=== PATIENT | female | born 1935 | race Two or more races ===

== ENCOUNTER → 2016-08-22 | Day surgery (SDC) | payer MEDICARE, BC ==
--- NOTE | 2016-08-18 15:14 | Pre-Procedure Note/Attestation ---
Pre-Procedure Note/Attestation Complete Prior to Procedure Planned Procedure: right Procedure Narrative: 1. anterior vitrectomy , right eye . 2. posterior synechiotomy , right eye. 3.IOL exchange , right eye. Indications for Procedure Pre-Operative Diagnosis: 1.IOL dislocation , right eye. 2. vitreous Prolapse , right eye. 3.posterior synechia , right eye. Attestation I attest that I discussed the nature of the procedure; its benefits; risks and complications; and alternatives (and the risks and benefits of such alternatives ), prior to the procedure, with the patient (or the patient's legal veterans employment representative). I attest that, if there was a reasonable possibility of needing a blood transfusion, the patient (or the patient's legal veterans employment representative) was given the [place] [employer] standardized written summary, pursuant to the [place] Blood Safety Act ([place] Health and Safety Code # 1645, as amended). I attest that I re-evaluated the patient just prior to the surgery and that there has been no change in the patient's H&P, except as documented below: MAXIMUS GONZALEZ Aug 18, 2016 15:14
[2016-08-22] VITALS (9 sets, daily range): BP systolic 124–145; BP diastolic 52–64
[~2016-08-22] VITALS: Ht 165.1 cm; Wt 81.7 kg
[~2016-08-22] MED LIST: Akten 3.5% 1ml Btl ONE; BSS 15ml BTL ONE; BSS 500ml btl ONE; Bupivacaine 0.75% 30ml vial INJ ONE; Carbachol 0.01% Op Soln 1.5ml vial ONE; Dexamethasone 4mg/ml vial ONE; Diclofenac Sod 0.1% Op Soln ONE; DiphenhydrAMINE 50mg/ml Inj IVP PRN; DiphenhydrAMINE 50mg/ml Inj ONE; EPINEPHrine 1mg/1ml Amp ONE; GLIMEPIRIDE4 MG ORAL; Gatifloxacin Opth Solution 0.5% ONE; JANUMET 50-1,01 EACH ORAL; LOSARTAN-HCTZ1 EAC1 ORAL; LR 1000ml 1,000 ML IVLG SCH; LR 1000ml ONE; Labetalol 5mg/ml 20ml vial IV PRN; Lidocaine 1% MPF 10mg/ml 5ml ONE; Lidocaine 2% 20mg/ml/Epi 0.005mg/ml 20ml vial ONE; NS Irrig 1000ml ONE; PLAVIX75 MG ORAL; POTASSIUM CHLO10 MEQ ORAL; Phenylephrine 10% Opth Soln 5ml ONE; Povidone-Iodine 5% opth solution ONE; Propofol 10mg/ml 20ml IV ONE; REPAGLINIDE2 MG PO; Sodium Hyaluronate 10 mg/ml 0.85ml ONE; Sterile Water Irrig 1000ml IRRIG ONE; Tropicamide 1% Opth Soln ONE; acetaZOLAMIDE 125mg tab ORAL ONE; jardiance PO
[2016-08-22] MEDS: Diclofenac Sod 0.1% Op Soln RIGHT EYE SCH ×3 (07:33→07:52)
[2016-08-22] MEDS: Tropicamide 1% Opth Soln RIGHT EYE SCH ×3 (07:33→07:52)
[2016-08-22] MEDS: Gatifloxacin Opth Solution 0.5% RIGHT EYE SCH ×3 (07:33→07:52)
[2016-08-22] MEDS: Phenylephrine 10% Opth Soln 5ml RIGHT EYE SCH ×3 (07:34→07:52)
[2016-08-22] MEDS: Akten 3.5% 1ml Btl RIGHT EYE SCH ×3 (07:35→07:52)
--- NOTE | 2016-08-22 09:08 | Anethesia Preoperative Eval ---
Anesthesia Pre-op PMH/ROS General Date of Evaluation: Aug 22, 2016 Anesthesiologist: Kev ASA Score: ASA 2 Mallampati Score Class I : Soft palate, uvula, fauces, pillars visible Class II: Soft palate, uvula, fauces visible Class III: Soft palate, base of uvula visible Class IV: Only hard plate visible Mallampati Classification: Class III Surgeon: Candice Diagnosis: Subluxation right IOL Surgical Procedure: Repositioning right IOL Anesthesia History: none Family History: no anesthesia problems Allergies: Coded Allergies: PENICILLINS (Verified Allergy, Unknown, 08/17/16) Medications: see eMAR Past Medical History Cardiovascular: Reports: HTN, Denies: CAD, [place], arrhythmia, other, valve dz Pulmonary: Denies: COPD, LAUREN, asthma, other Gastrointestinal/Genitourinary: Reports: GERD, Denies: CRI, ESRD, other Neurologic/Psychiatric: Denies: CVA, TIA, dementia, depression/anxiety, other Endocrine: Reports: DM, Denies: hypothyroidism, other, steroids HEENT: Denies: [place] (L), [place] (R), cataract (L), cataract (R), glaucoma, other Hematology/Immune: Denies: DVT, anemia, bleeding disorder, other Musculoskeletal/Integumentary: Reports: OA, Denies: DDD, DJD, RA, edema, other Other: obesity PSxH Narrative: Right cataract Anesthesia Pre-op Phys. Exam Physician Exam Last Vital Signs Date Time Temp Pulse Resp B/P Pulse Ox O2 Delivery O2 Flow Rate FiO2 08/22/16 07:50 97.6 56 18 143/64 95 Room Air Constitutional: NAD Cardiovascular: RRR Respiratory: CTA Airway Exam Mallampati Score: Class III Anesthesia Pre-op A/P Labs see chart Studies Pre-op Studies: EKG - sr Risk Assessment & Plan Assessment: ASA II Plan: MAC Status Change Before Surgery: No Pre-Antibiotics Drug: N/A SAUL ROMERO M.D. Aug 22, 2016 09:08
--- NOTE | 2016-08-22 09:10 | 48 Hour Post Anesthesia Eval ---
Post Anesthesia Evaluation Procedure: Repositioning right IOL Date of Evaluation: Aug 22, 2016 Blood Pressure Systolic: 125 0: 53 Pulse Rate: 58 Respiratory Rate: 13 O2 Sat by Pulse Oximetry: 95 Airway: patent Nausea: No Vomiting: No Pain Intensity: 0 Hydration Status: adequate Cardiopulmonary Status: at baseline Mental Status/LOC: patient returned to baseline Post-Anesthesia Complications: 0 Follow-up care needed: ready to discharge SAUL ROMERO M.D. Aug 22, 2016 09:10
--- NOTE | 2016-08-22 09:10 | Immediate Post-Op Evaluation ---
Immediate Post-Op Evalulation Immediate Post-Op Evalulation Procedure: Repositioning right IOL Date of Evaluation: Aug 22, 2016 Time of Evaluation: 10:19 IV Fluids: 200 Blood Products: 0 Estimated Blood Loss: 0 Urinary Output: 0 Blood Pressure Systolic: 131 Blood Pressure Diastolic: 59 Pulse Rate: 58 Respiratory Rate: 15 O2 Sat by Pulse Oximetry: 93 Temperature (Fahrenheit): 97 Pain Score (1-10): 0 Nausea: No Vomiting: No Complications 0 Patient Status: awake, reacts, patent, none Hydration Status: adequate Drug: N/A SAUL ROMERO M.D. Aug 22, 2016 09:10
--- NOTE | 2016-08-22 10:19 | Brief Operative Note ---
Immediate Post Operative Note Operative Note Chief Complaint: Blurry right eye, pain, redness and foreign body sensation, right eye Pre-op Diagnosis: 1.IOL dislocation , right eye. 2. vitreous Prolapse , right eye. 3.posterior synechia , right eye. Procedure: 1- Posterior synechiotomy, right eye 2- Anterior vitrectomy, right eye 3- IOL repositioning, right eye Post-op Diagnosis: same as pre-op Surgeon: Maximus Harevy MD. Dishwashing Machine Repairer: None Additional Surgeons: None Anesthesiologist: Dr. Valle Anesthesia: MAC Specimen: none Complications: none Condition: stable Estimated Blood Loss: none Drains: none Implant(s) used?: MAXIMUS Cintron Aug 22, 2016 10:19
--- NOTE | 2016-08-22 22:18 | Operative Note - Dictated ---
"NOTE: NO DICTATION" Dat Harvey M.D. DR: TONY JOB#: [id number] CC:
--- NOTE | 2016-08-23 01:47 | Discharge Summary ---
DATE OF ADMISSION: 08/22/2016 DATE OF DISCHARGE: 08/22/2016 REASON FOR HOSPITALIZATION: 1. Posterior synechiae. 2. Anterior synechiae. 3. V2 prolapse. 4. IOL dislocation. SURGERY PERFORMED: 1. Posterior synechiotomy. 2. Anterior vitrectomy. 3. Intraocular lens reposition. CONDITION IN THE HOSPITAL: The patient tolerated the surgery without complications. DISCHARGE CONDITION: The patient was stable at discharge. DISCHARGE MEDICATIONS: 1. Prednisolone 1% one drop q.i.d., in the right eye. 2. Vigamox eyedrops one drop q.i.d., in the right eye. 3. Acular one drop t.i.d., in the right eye. POSTOPERATIVE ORDERS: The patient has to rest at home. No bending. No lifting. POSTOPERATIVE FOLLOWUP: The patient will be followed in my office tomorrow morning at 7 o'clock. Dat Harvey M.D. DR: TONY JOB#: [id number] CC:
--- NOTE | 2016-08-24 01:58 | Operative Note - Dictated ---
DATE OF OPERATION: 08/22/2016 NOTE: POOR AUDIO FACILITY: [facility]. SURGEON: Dat Harvey M.D. BIOMEDICAL ENGINEERING PROFESSOR: None. ANESTHESIOLOGIST: Dr. Valle. ANESTHESIA: Monitored anesthesia care (MAC) plus retrobulbar injection of 2% lidocaine with epinephrine plus 0.75% Marcaine. PREOPERATIVE DIAGNOSES: 1. Posterior synechiae. 2. Vitreous prolapse. 3. Intraocular lens dislocation. POSTOPERATIVE DIAGNOSES: 1. Posterior synechiae. 2. Vitreous prolapse. 3. Intraocular lens dislocation. SURGERY PERFORMED: 1. Posterior synechiotomy in the right eye. 2. Anterior vitrectomy, right eye. 3. Intraocular lens reposition, right eye. Indication For Surgery: The patient is a 80-year-old lady with history of diabetes mellitus, coronary artery disease, hypertension, hypercholesterolemia, gastritis, and diabetic neuropathy. The patient is taking medications since 02:49 and she has taken including Valle, glimepiride, Janumet, losartan, , Plavix, and vitamin B. The patient is not a smoker and is not a drinker, but she is sensitive to penicillin. The patient has had some surgeries including 04:22 cataract in both eyes. Now, she is complaining of blurry vision in the right eye, , redness, and . On examination of the right eye, the cornea is clear. Anterior chamber is deep. There is a lot of 04:50 deposits from the endothelium of the cornea and there is some to the anterior chamber. Iris is somehow atrophic and there is retroillumination through the iris. The pupillary reflex is normal. There is no RAPD. There is 05:43 support that the lens dislocated and the rim of the lens is in the middle of the . There is some posterior synechiae within the lens and capsule and iris and there is vitreous prolapse around the lens. Funduscopy shows normal optic disc, questionable macular edema, and flat retina. To improve the patient's vision and improve the glare and decrease the pain because of 06:57 of the lens to the eye, the lens has to be removed or the lens has to be repositioned and the vitreous should be removed from the anterior chamber and posterior synechiae has to be removed as well. Informed Consent: The nature of the surgery, risks, benefits, alternatives, and potential complications were explained in detail to the patient in her language, Farsi. The potential complications including, but not limited to bleeding, infection, lens dislocation, sinking IOL into the vitreous, retinal detachment, uveitis, endophthalmitis, cranial edema, macular edema, loss of vision, and even loss of the eye were all explained in detail to the patient, who voiced understanding and accepted all the complications. There is no alternative to the issue unless the 08:41 but the only option is surgical intervention and reposition of the intraocular lens. Description Of Surgery And Findings: Following that, the patient was taken to the operating room in a stable condition. A retrobulbar injection and lidocaine 2% with epinephrine plus Marcaine 0.75% 09:24 was injected in the retrobulbar area and was injected. Following that, the eye was prepped and draped for intraocular surgery. The IV sedation was given by the anesthesiologist and after adequate anesthesia and sedation had been achieved, the right eye was prepped and draped in sterile fashion for intraocular surgery. Following that, a speculum was placed in the right eye. Using a Super Sharp knife, a clear corneal side port was created and then viscoelastic agent, Healon was injected into the anterior chamber. Following that, a clear temporal side keratotomy was performed. Following that, viscoelastic agent was injected between the iris and the lens, anterior synechiae, and between the lens and the posterior capsule opened, and posterior synechiae was performed. Following that, with vitrectomy machine, anterior vitrectomy was performed. Following that, the intraocular lens was manipulated and 11:18 removed and the optic of the lens was captured into the capsulotomy. After the optic of the lens pushed back in back of the posterior capsule, whole viscoelastic was removed from the anterior and posterior part of the lens. Following that, the anterior chamber was filled with balanced salt solution. Following that, Monistat was injected into the anterior chamber and the pupil was round and 12:16. Following that, the wound was hydrated with balanced salt solution. The wound was checked for leakage and there was no leakage. Following that, Vigamox eye drops were applied to the conjunctiva of the right eye. The patient tolerated the surgery without complications. At the end of the surgery, the eye was patched with a clear fenestrated shield. Following that, the patient was transferred to the recovery room. In the recovery room, 125 mg was given by mouth stat. Postoperative orders and directions were given to the patient. The patient will be discharged home upon stabilization. The patient will be followed in my office tomorrow morning at 7 o'clock. Dat Harvey M.D. DR: TONY JOB#: [id number] CC:
== END | disposition home or self-care (01) ==
LOC: SUR 07:13
DX: T85.22XA Displacement of intraocular lens, initial encounter (principal); H43.01 Vitreous prolapse, right eye; H21.541 Posterior synechiae (iris), right eye; Y83.8 Other surgical procedures as the cause of abnormal reaction of the patient, or of later complication, without mention of misadventure at the time of the procedure; Y92.89 Other specified places as the place of occurrence of the external cause; I25.10 Atherosclerotic heart disease of native coronary artery without angina pectoris; I10 Essential (primary) hypertension; E78.5 Hyperlipidemia, unspecified; E11.40 Type 2 diabetes mellitus with diabetic neuropathy, unspecified; K21.9 Gastro-esophageal reflux disease without esophagitis; I49.9 Cardiac arrhythmia, unspecified; M19.90 Unspecified osteoarthritis, unspecified site; E66.9 Obesity, unspecified; Z88.0 Allergy status to penicillin; Z79.02 Long term (current) use of antithrombotics/antiplatelets; Z79.899 Other long term (current) drug therapy
CPT/HCPCS: 67005; 82962; J0171; J1100; J1200; J2704; J3490; J7120; 94003; 94150